=== PATIENT | male | born 1985 | race Caucasian/White ===

== ENCOUNTER → 2020-07-10 10:04 | Outpatient (CLI) | payer OTHER, MEDICAID, SELFPAY ==
[2020-07-10 11:33] LABS: Add Manual Diff / Slide Review NO; Basophils Absolute Auto 100 /uL (0-100); Eosinophils Absolute Auto 300 /uL (0-450); Eosinophils Percent Auto 3.4 % (2-4); Hematocrit 45.3 % (41-53); Hemoglobin 15.3 g/dL (13.5-17.5); Lymphocytes Absolute Auto 2300 /uL (1100-4500); Lymphocytes Percent Auto 28.4 % (25-40); Mean Corpuscular HGB Conc 33.7 % (30-36); Mean Corpuscular Hemoglobin 29.4 PG (26-34); Mean Corpuscular Volume 87.3 fL (80-100); Monocytes Absolute Auto 600 /uL (0-900); Monocytes Percent Auto 7.6 % (3-14); Neutrophils Absolute Auto 4800 /uL (1500-7000); Neutrophils Percent Auto 59.6 % (50-75); Platelet Count 225 X10^3/uL (150-400); Red Blood Cell Count 5.19 X10^6/uL (4.5-5.9); Red Cell Distribution Width 12.7 % (11.6-14.8); White Blood Cell Count 8.1 X10^3/uL (4.5-11.0)
[2020-07-10 12:18] LABS: Alanine Aminotransferase 35 IU/L (<50); Albumin 4.3 g/dL (3.5-5.0); Albumin Globulin Ratio 1.6 (1.0-2.8); Alkaline Phosphatase 70 U/L (38-126); Aspartate Aminotransferase 26 IU/L (17-59); BUN Creatinine Ratio 18.2 (6-22); Bilirubin Total 0.2 mg/dL (0.2-1.3); Blood Urea Nitrogen 18 mg/dL (9-20); Calcium 9.4 mg/dL (8.4-10.2); Carbon Dioxide 29 mmol/L (22-32); Chloride 103 mmol/L (98-107); Cholesterol 214 mg/dL (140-199); Estimated Glomerular Filt Rate > 60.0 mL/min (>60); Globulin 2.7 g/dL (1.7-4.1); Glucose 87 mg/dL (70-100); HDL Cholesterol 34 mg/dL (40-60); HEMOLYSIS < 15 (0-50); LDL Cholesterol Calculated 149 mg/dL (<100); Potassium 4.8 mmol/L (3.4-5.1); Sodium 136 mmol/L (137-145); Triglycerides 157 mg/dL (35-150)
[2020-07-10 12:48] LABS: TSH w/ Reflex to FT4 1.83 uIU/mL (0.47-4.68)
== END ==
PROVIDERS: PCP Internal Medicine; Referring Provider Internal Medicine; Visit Provider Internal Medicine
DX: Z13.1 Encounter for screening for diabetes mellitus (principal); Z13.220 Encounter for screening for lipoid disorders; Z13.6 Encounter for screening for cardiovascular disorders
CPT/HCPCS: 36415; 80053; 80061; 84443; 85025

== ENCOUNTER 2023-06-27 21:44 | Emergency (ER) | payer OTHER, MEDICAID, SELFPAY ==
[2023-06-27 21:54] VITALS: BP 126/77; PULSE 97; RESP 17; TEMP 37.1; O2SAT 97; BMI 27.7
--- NOTE | 2023-06-27 21:56 | DI.RAD.S_ITS ---
PROCEDURE: XR ANKLE LT MIN 3V INDICATIONS: injury TECHNIQUE: 3 views of the ankle were acquired. COMPARISON: None. FINDINGS: Bones: Chip fracture of the lateral midfoot, possibly the navicular bone. Soft tissues: Large tibiotalar joint effusion. Achilles tendon appears normal. Significant swelling of the hindfoot and midfoot. IMPRESSION: Chip fracture of the lateral midfoot, incompletely characterized on this ankle series. Recommend dedicated foot series. Dictated by: Edmond Talbot M.D. on 06/27/2023 at 22:22 Approved by: Edmond Talbot M.D. on 06/27/2023 at 22:24
--- NOTE | 2023-06-27 22:32 | DI.RAD.S_ITS ---
PROCEDURE: XR FOOT LT MIN 3V INDICATIONS: injury TECHNIQUE: 3 views of the foot were acquired. COMPARISON: [facility], CR, XR ANKLE LT MIN 3V, 06/27/2023, 21:59. FINDINGS: Bones: Extra-articular chip fracture the anterior, lateral calcaneus. Soft tissues: Large tibiotalar joint effusion. Achilles tendon appears normal. Soft tissue swelling of the midfoot and hindfoot. IMPRESSION: Extra-articular chip fracture of the anterior, lateral calcaneus. Dictated by: Edmond Talbot M.D. on 06/27/2023 at 23:13 Approved by: Edmond Talbot M.D. on 06/27/2023 at 23:14
--- NOTE | 2023-06-27 23:45 | ED.LOWEXIN ---
HPI - Extremity Injury (Lower) General Chief Complaint: Extremity Injury, Lower Stated Complaint: lt ankle injury Time Seen by Provider: 06/27/23 21:52 Source: patient Mode of arrival: Ambulatory History of Present Illness HPI Narrative: 38-year-old male presents with left foot pain and swelling from an injury earlier this evening. Patient was playing basketball when he landed on his inverted foot. He was unable to bear weight initially afterwards. He attempted to recover at home but even after resting it and elevating it he was still unable to bear weight on the foot and so he decided to present for evaluation. Related Data Previous Rx's Medication Instructions Recorded hydrocodone 5 mg-acetaminophen 325 1 tab PO Q8H PRN pain #10 tabs 06/27/23 mg tablet Allergies Allergy/AdvReac Type Severity Reaction Status Date / Time No Known Drug Allergies Allergy Verified 06/27/23 21:55 Review of Systems Review of Systems Narrative: Negative except as noted above Patient History Family History Mother Cancer Father Blood clotting disorder Social History household members: spouse education level: high school occupational status: employed Smoking Status: Current every day smoker Smoking Status: Current every day smoker alcohol intake frequency: other Substance Use Type: does not use Exam Initial Vital Signs Initial Vital Signs: Vital Signs Temperature 98.7 F 06/27/23 21:54 Pulse Rate 97 H 06/27/23 21:54 Respiratory Rate 17 06/27/23 21:54 Blood Pressure 126/77 06/27/23 21:54 Pulse Oximetry 97 06/27/23 21:54 Oxygen Delivery Method Room Air 06/27/23 21:54 Const: Awake, alert, no acute distress, nontoxic appearing Cardiac: regular rate, regular rhythm RESP: unlabored, clear bilaterally, no wheezing MSK: Moderate swelling left lateral ankle, tenderness along lateral malleolus and lateral foot. Sensation and movement intact, pulses palpable Skin: Warm, Dry, intact, no rashes Neuro: AO x3, CN II-XII grossly intact, moves all extremities Psych: affect normal, mood normal, not suicidal, not homicidal Course Orders Ordered: ED Orders 06/27/23 21:56 XR ankle LT min 3V Stat 01/30/24 22:32 XR foot LT min 3V Stat Vital Signs Vital signs: Vital Signs - 8 hr 06/27/23 21:54 06/27/23 23:55 Temperature 98.7 F Pulse Rate 97 H 79 Respiratory Rate 17 17 Blood Pressure 126/77 137/71 Pulse Oximetry 97 96 Oxygen Delivery Method Room Air MDM - Extremity Injury (Lower) MDM Narrative Medical decision making narrative: Well-appearing patient with ankle pain and swelling after a basketball inversion injury. Neurovascularly intact. X-ray of the ankle show no acute fracture, swelling is present. Incidental finding of anterolateral this chip fracture off of the calcaneus. Patient informed of imaging findings, placed in River wrap for comfort and postop shoe applied. He was counseled on the importance of orthopedic follow up. Pain medication sent to pharmacy of choice. [facility] instructions counseled for home care. Discharge Plan Departure Patient Disposition: Home Clinical Impression: Ankle sprain, Avulsion fracture of calcaneus Instructions: DI for Ankle Sprain, DI for Calcaneus Fracture Activity Restrictions/Additional Instructions: The x-ray of your ankle was normal, however it does appear that you have a small calcaneal chip fracture on your foot. Wear your River bandage for comfort and elevate your ankle for pain control and swelling. Follow up with orthopedic surgery Prescriptions: New hydrocodone-acetaminophen 5-325 mg tablet 1 tab PO Q8H PRN (Reason: pain) Qty: 10 0RF Referrals: Amanda Padilla MD [Physician] - Daryl Bautista DO [Primary Care Provider] - Stand Alone Forms: Patient Portal/API
[2023-06-27 23:55] VITALS: BP 137/71; PULSE 79; RESP 17; O2SAT 96
== END 2023-06-28 00:10 | disposition home or self-care (01) ==
PROVIDERS: Emergency Provider Emergency Medicine; PCP Internal Medicine
DX: S92.002A Unspecified fracture of left calcaneus, initial encounter for closed fracture (principal); S93.402A Sprain of unspecified ligament of left ankle, initial encounter; X50.1XXA Overexertion from prolonged static or awkward postures, initial encounter; Y93.67 Activity, basketball
CPT/HCPCS: 73610; 73630; 99282

== ENCOUNTER → 2024-03-14 10:35 | Outpatient (CLI) | payer OTHER, MEDICAID, SELFPAY ==
[2024-03-14 11:20] LABS: Influenza A - CEPHEID Flu A NEGATIVE (NEGATIVE); Influenza B - CEPHEID Flu B NEGATIVE (NEGATIVE); Respiratory Syncytial Virus Negative (Negative)
[2024-03-14 11:30] LABS: COVID-19 CEPHEID 4-PLEX PCR Negative (Negative)
== END ==
PROVIDERS: PCP Internal Medicine; Visit Provider Physician Assistant Medical
DX: R05.1 Acute cough (principal)
CPT/HCPCS: 87635; 87400 ×2; 87420; 0241U